=== PATIENT | male | born 1960 | race Caucasian/White ===

== ENCOUNTER 2018-04-21 19:18 | Inpatient (IN) | payer MEDICARE, MEDICAID ==
[~2018-04-21] VITALS: Ht 165.1 cm; Wt 55.8 kg
[2018-04-21] MEDS ORDERED: IBUP-1953 PO (20:08)
[2018-04-21] MEDS ORDERED: ARIP2TAB3 PO (20:08)
[2018-04-21] MEDS ORDERED: AMLO10TA2 PO (20:09)
[2018-04-21 21:00] VITALS: BP 138/78
[2018-04-21] MEDS ORDERED: DEXTROSE 50%-WATER 50 ML DISP.SYRIN IV PRN (21:30)
[2018-04-21] MEDS ORDERED: IBUPROFEN 400 MG TABLET PO PRN (21:30)
[2018-04-21] MEDS: BLOOD SUGAR DIAGNOSTIC 1 EACH STRIP IN SCH (22:00)
[2018-04-21] MEDS: *INSULIN REGULAR(HUMULIN R)HUM 100 UNIT/ML VIAL SQ PRN (22:14)
[2018-04-21] MEDS ORDERED: LORAZEPAM 0.5 MG TABLET PO PRN (22:30)
[2018-04-21] MEDS ORDERED: ACETAMINOPHEN 325 MG TABLET PO PRN (22:30)
[2018-04-21] MEDS ORDERED: TEMAZEPAM 7.5 MG CAPSULE PO PRN (22:30)
[2018-04-21] MEDS ORDERED: MAGNESIUM HYDROXIDE 30 ML UDC PO PRN (22:30)
[2018-04-21] MEDS ORDERED: MAG HYDROX/AL HYDROX/SIMETH 30 ML UDC PO PRN (22:30)
[2018-04-22] MEDS: BLOOD SUGAR DIAGNOSTIC 1 EACH STRIP IN SCH ×4 (07:55→21:43)
[2018-04-22 08:00] VITALS: BP 112/67
[2018-04-22] MEDS: INSULIN REGULAR, HUMAN 100 UNIT/ML 3 ML VIAL SQ PRN ×2 (08:17→12:14)
[2018-04-22] MEDS: NICOTINE PATCH (21MG) 21 MG PATCH.TD24 TD SCH (08:17)
[2018-04-22] MEDS: AMLODIPINE BESYLATE 10 MG TABLET PO SCH (08:18)
[2018-04-22 10:43] LABS: BASOPHILS % (AUTO) 0.4 % (0.0-2.0); HEMATOCRIT 36 % (39-51); HEMOGLOBIN 12.4 g/dL (13.5-17.5); LYMPHOCYTES # (AUTO) 1.4 /CMM (0.8-4.8); LYMPHOCYTES % (AUTO) 23.3 % (20.0-44.0); MEAN CORPUSCULAR HEMOGLOBIN 32 PG (26.0-33.0); MEAN CORPUSCULAR HGB CONC 34 g/dl (31.0-36.0); MEAN CORPUSCULAR VOLUME 94 fL (80-96); MONOCYTES # (AUTO) 0.3 /CMM (0.1-1.30); MONOCYTES % (AUTO) 5.9 % (2.0-12.0); NEUTROPHILS # (AUTO) 4.1 /CMM (1.8-8.9); NEUTROPHILS % (AUTO) 69.4 % (43.0-81.0); PLATELET COUNT (AUTO) 259 /CMM (150-450); RDW COEFFICIENT OF VARIATION 14.5 (11.5-15.0); RED BLOOD CELL COUNT(AUTO) 3.85 MIL/uL (4.5-6.0); WHITE BLOOD COUNT (AUTO) 5.9 K/uL (4.3-11.0)
[2018-04-22 11:04] LABS: ALBUMIN 3.4 g/dL (3.4-5.0); BILIRUBIN,TOTAL 0.2 mg/dL (0.2-1.0); CALCIUM, SERUM 8.5 mg/dL (8.5-10.1); CREATININE 1.2 mg/dL (0.6-1.3); POTASSIUM 4.1 mmol/L (3.5-5.1); TOTAL PROTEIN, SERUM 7.3 g/dL (6.4-8.2)
[2018-04-22 11:14] LABS: CHOLESTEROL 171 mg/dL (<200); HDL CHOLESTEROL 54 mg/dL (40-60); LDL 91 mg/dL (0-99); TRIGLYCERIDES 243 mg/dL (30-150)
[2018-04-22] MEDS ORDERED: MINERAL OIL/PETROLATUM,WHITE 120 GM JAR TP PRN (14:00)
[2018-04-22 16:00] VITALS: BP 154/71
[2018-04-22 20:00] VITALS: BP 127/68
[2018-04-22 20:05] VITALS: BP 150/79
[2018-04-22] MEDS: *INSULIN REGULAR(HUMULIN R)HUM 100 UNIT/ML VIAL SQ PRN (21:45)
[2018-04-22] MEDS: ARIPIPRAZOLE 5 MG TABLET PO SCH (21:50)
[2018-04-22] MEDS: MIRTAZAPINE 15 MG TABLET PO SCH (21:50)
[2018-04-23 08:19] VITALS: BP 145/77
[2018-04-23 08:39] LABS: APPEARANCE,URINE CLEAR (CLEAR); BILIRUBIN,URINE NEGATIVE (NEGATIVE); BLOOD, URINE NEGATIVE Ery/uL (NEGATIVE); COLOR,URINE YELLOW (YELLOW); KETONES,URINE NEGATIVE (NEGATIVE); LEUKOCYTE ESTERASE ,URINE NEGATIVE (NEGATIVE); NITRITE, URINE NEGATIVE (NEGATIVE); PROTEIN,URINE 1+ mg/dl (NEGATIVE); UGLUCOSE 3+ mg/dL (NEGATIVE); UROBILINOGEN,URINE 0.2 EU/dL (0.2)
[2018-04-23] MEDS: AMLODIPINE BESYLATE 10 MG TABLET PO SCH (09:20)
[2018-04-23] MEDS: NICOTINE PATCH (21MG) 21 MG PATCH.TD24 TD SCH (09:20)
[2018-04-23 09:26] LABS: RBC,URINE 0-2 /HPF (0-2)
[2018-04-23 09:27] LABS: BACTERIA,URINE None seen /HPF (None Seen); MUCUS,URINE Rare /LPF (None Seen); SQUAMOUS EPITHELIAL CELL,UR None Seen /HPF (None Seen)
[2018-04-23] MEDS: BLOOD SUGAR DIAGNOSTIC 1 EACH STRIP IN SCH ×4 (09:38→21:52)
[2018-04-23] MEDS: INSULIN REGULAR, HUMAN 100 UNIT/ML 3 ML VIAL SQ PRN ×2 (09:39→16:49)
[2018-04-23 16:23] VITALS: BP 108/58
[2018-04-23 20:00] VITALS: BP 118/62
[2018-04-23] MEDS: MIRTAZAPINE 15 MG TABLET PO SCH (21:51)
[2018-04-23] MEDS: ARIPIPRAZOLE 5 MG TABLET PO SCH (21:51)
[2018-04-23] MEDS: *INSULIN REGULAR(HUMULIN R)HUM 100 UNIT/ML VIAL SQ PRN (21:54)
[2018-04-24 08:00] VITALS: BP 118/71
[2018-04-24] MEDS: INSULIN REGULAR, HUMAN 100 UNIT/ML 3 ML VIAL SQ PRN ×2 (08:10→12:19)
[2018-04-24] MEDS: BLOOD SUGAR DIAGNOSTIC 1 EACH STRIP IN SCH ×4 (08:11→22:21)
[2018-04-24] MEDS: AMLODIPINE BESYLATE 10 MG TABLET PO SCH (09:00)
[2018-04-24] MEDS: NICOTINE PATCH (21MG) 21 MG PATCH.TD24 TD SCH (09:00)
[2018-04-24 16:00] VITALS: BP 140/75
[2018-04-24 20:00] VITALS: BP 135/64
[2018-04-24] MEDS: ARIPIPRAZOLE 5 MG TABLET PO SCH (22:17)
[2018-04-24] MEDS: MIRTAZAPINE 15 MG TABLET PO SCH (22:17)
[2018-04-24] MEDS: *INSULIN REGULAR(HUMULIN R)HUM 100 UNIT/ML VIAL SQ PRN (22:23)
[2018-04-25 08:00] VITALS: BP 132/67
[2018-04-25] MEDS: BLOOD SUGAR DIAGNOSTIC 1 EACH STRIP IN SCH ×4 (08:23→22:28)
[2018-04-25] MEDS: NICOTINE PATCH (21MG) 21 MG PATCH.TD24 TD SCH (08:25)
[2018-04-25] MEDS: AMLODIPINE BESYLATE 10 MG TABLET PO SCH (08:25)
[2018-04-25] MEDS: INSULIN REGULAR, HUMAN 100 UNIT/ML 3 ML VIAL SQ PRN ×2 (09:16→12:24)
[2018-04-25 16:00] VITALS: BP 147/64
[2018-04-25 20:00] VITALS: BP 116/55
[2018-04-25] MEDS: MIRTAZAPINE 15 MG TABLET PO SCH (21:17)
[2018-04-25] MEDS: ARIPIPRAZOLE 5 MG TABLET PO SCH (21:17)
[2018-04-25] MEDS: *INSULIN REGULAR(HUMULIN R)HUM 100 UNIT/ML VIAL SQ PRN (22:39)
[2018-04-26 08:00] VITALS: BP 129/73
[2018-04-26] MEDS: NICOTINE PATCH (21MG) 21 MG PATCH.TD24 TD SCH (08:21)
[2018-04-26] MEDS: AMLODIPINE BESYLATE 10 MG TABLET PO SCH (08:21)
[2018-04-26] MEDS: INSULIN REGULAR, HUMAN 100 UNIT/ML 3 ML VIAL SQ PRN ×3 (08:24→16:26)
[2018-04-26] MEDS: BLOOD SUGAR DIAGNOSTIC 1 EACH STRIP IN SCH ×4 (08:26→21:14)
[2018-04-26 16:05] VITALS: BP 144/71
[2018-04-26 19:44] VITALS: BP 122/72
[2018-04-26] MEDS: ARIPIPRAZOLE 5 MG TABLET PO SCH (21:03)
[2018-04-26] MEDS: MIRTAZAPINE 15 MG TABLET PO SCH (21:03)
[2018-04-26] MEDS: *INSULIN REGULAR(HUMULIN R)HUM 100 UNIT/ML VIAL SQ PRN (21:18)
[2018-04-27 08:00] VITALS: BP 133/72
[2018-04-27] MEDS: NICOTINE PATCH (21MG) 21 MG PATCH.TD24 TD SCH (09:09)
[2018-04-27] MEDS: AMLODIPINE BESYLATE 10 MG TABLET PO SCH (09:09)
[2018-04-27] MEDS: BLOOD SUGAR DIAGNOSTIC 1 EACH STRIP IN SCH ×4 (09:09→21:36)
[2018-04-27] MEDS: INSULIN REGULAR, HUMAN 100 UNIT/ML 3 ML VIAL SQ PRN ×4 (09:13→17:30)
[2018-04-27 16:00] VITALS: BP 134/60
[2018-04-27] MEDS ORDERED: POLYVINYL ALCOHOL 15 ML BOTTLE EACHEYE PRN (16:00)
[2018-04-27 20:48] VITALS: BP 102/57
[2018-04-27] MEDS: MIRTAZAPINE 15 MG TABLET PO SCH (21:19)
[2018-04-27] MEDS: ARIPIPRAZOLE 5 MG TABLET PO SCH (21:19)
[2018-04-27] MEDS: *INSULIN REGULAR(HUMULIN R)HUM 100 UNIT/ML VIAL SQ PRN (21:36)
[2018-04-28] MEDS: BLOOD SUGAR DIAGNOSTIC 1 EACH STRIP IN SCH ×4 (07:49→21:36)
[2018-04-28 08:00] VITALS: BP 108/56
[2018-04-28] MEDS: NICOTINE PATCH (21MG) 21 MG PATCH.TD24 TD SCH (08:36)
[2018-04-28] MEDS: AMLODIPINE BESYLATE 10 MG TABLET PO SCH (08:37)
[2018-04-28] MEDS: INSULIN REGULAR, HUMAN 100 UNIT/ML 3 ML VIAL SQ PRN ×3 (08:43→16:47)
[2018-04-28 16:00] VITALS: BP 153/79
[2018-04-28 20:08] VITALS: BP 120/67
[2018-04-28] MEDS: MIRTAZAPINE 15 MG TABLET PO SCH (21:35)
[2018-04-28] MEDS: ARIPIPRAZOLE 5 MG TABLET PO SCH (21:36)
[2018-04-29 07:24] LABS: BASOPHILS % (AUTO) 0.9 % (0.0-2.0); EOSINOPHILS % (AUTO) 3.1 % (0.0-6.0); HEMATOCRIT 33 % (39-51); LYMPHOCYTES # (AUTO) 1.9 /CMM (0.8-4.8); LYMPHOCYTES % (AUTO) 37.2 % (20.0-44.0); MEAN CORPUSCULAR HEMOGLOBIN 32 PG (26.0-33.0); MEAN CORPUSCULAR HGB CONC 34 g/dl (31.0-36.0); MEAN CORPUSCULAR VOLUME 95 fL (80-96); MONOCYTES # (AUTO) 0.4 /CMM (0.1-1.30); MONOCYTES % (AUTO) 8.7 % (2.0-12.0); NEUTROPHILS # (AUTO) 2.6 /CMM (1.8-8.9); NEUTROPHILS % (AUTO) 50.1 % (43.0-81.0); PLATELET COUNT (AUTO) 342 /CMM (150-450); RDW COEFFICIENT OF VARIATION 14.3 (11.5-15.0); RED BLOOD CELL COUNT(AUTO) 3.44 MIL/uL (4.5-6.0); WHITE BLOOD COUNT (AUTO) 5.2 K/uL (4.3-11.0)
[2018-04-29 07:39] LABS: CALCIUM, SERUM 8.3 mg/dL (8.5-10.1); CREATININE 0.8 mg/dL (0.6-1.3); POTASSIUM 4.2 mmol/L (3.5-5.1)
[2018-04-29 08:00] VITALS: BP 105/60
[2018-04-29] MEDS: BLOOD SUGAR DIAGNOSTIC 1 EACH STRIP IN SCH ×4 (08:09→21:35)
[2018-04-29] MEDS: AMLODIPINE BESYLATE 10 MG TABLET PO SCH (09:00)
[2018-04-29] MEDS: NICOTINE PATCH (21MG) 21 MG PATCH.TD24 TD SCH (09:22)
[2018-04-29] MEDS: INSULIN REGULAR, HUMAN 100 UNIT/ML 3 ML VIAL SQ PRN ×2 (12:07→17:44)
[2018-04-29 16:00] VITALS: BP 137/70
[2018-04-29 20:06] VITALS: BP 123/47
[2018-04-29] MEDS: ARIPIPRAZOLE 5 MG TABLET PO SCH (21:35)
[2018-04-29] MEDS: MIRTAZAPINE 15 MG TABLET PO SCH (21:35)
[2018-04-29] MEDS: *INSULIN REGULAR(HUMULIN R)HUM 100 UNIT/ML VIAL SQ PRN (21:38)
[2018-04-29] MEDS ORDERED: INSULIN GLARGINE, 100 UNIT/ML CARTRIDGE SQ SCH (22:00)
[2018-04-29 23:00] VITALS: BP 120/62
[2018-04-30 08:00] VITALS: BP 121/68
[2018-04-30] MEDS: BLOOD SUGAR DIAGNOSTIC 1 EACH STRIP IN SCH (08:06)
[2018-04-30 08:50] VITALS: BP 121/68
[2018-04-30] MEDS: NICOTINE PATCH (21MG) 21 MG PATCH.TD24 TD SCH (08:50)
[2018-04-30] MEDS: AMLODIPINE BESYLATE 10 MG TABLET PO SCH (08:50)
== END 2018-04-30 11:15 | DRG 885 ==
LOC: GPS 19:18
PROVIDERS: ADMIT Psychiatry & Neurology Psychiatry; ATTEND Hospitalist
DX: F20.0 Paranoid schizophrenia (principal); E11.65 Type 2 diabetes mellitus with hyperglycemia; R45.851 Suicidal ideations; F41.9 Anxiety disorder, unspecified; D63.8 Anemia in other chronic diseases classified elsewhere; F17.210 Nicotine dependence, cigarettes, uncomplicated; I10 Essential (primary) hypertension; G47.00 Insomnia, unspecified; F29 Unspecified psychosis not due to a substance or known physiological condition; Z79.4 Long term (current) use of insulin; Z71.6 Tobacco abuse counseling
CPT/HCPCS: 36415; 80048-TC; 80053-TC; 80061-TC; 81000-TC; 82962-TC; 85025-TC; 87081-TC; J1815